=== PATIENT | male | born 1965 | race Caucasian/White ===

== ENCOUNTER 2019-01-20 19:21 | Emergency (ER) | payer OTHER ==
[2019-01-20 19:29] VITALS: TEMP 97.6
--- NOTE | 2019-01-20 19:32 | ED ---
Psych HPI - General Source: patient, police, RN notes reviewed, old records reviewed Mode of arrival: ambulatory - History of Present Illness MD Complaint: suicidal ideation, feels depressed -: week(s) Associated Psychiatric Symptoms: depression, suicidal ideation, racing thoughts History of same: Yes Quality: constant Improves With: none Worsens With: none Context: recent alcohol abuse Associated Symptoms: denies other symptoms Treatments Prior to Arrival: placed on mental health hold If Self Harm: admits thoughts of self harm <Jose Manuel Bowser - Last Filed: 01/20/19 21:04> <Ravinder Barnes - Last Filed: 01/20/19 23:28> - General Chief Complaint: Psychiatric Symptoms Stated Complaint: Mental Health Time Seen by Provider: 01/20/19 19:32 - History of Present Illness Initial Comments: This is a 53-year-old male the ER for psychiatric evaluation of severe depression he did make a statement is brought in by PD for petition evaluation of suicidal thoughts and attempt. 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 Patient does give history of same today. He admits increased stress to these taxes and patient deny intramural [employer] today did drink over the weekend (Jose Manuel Bowser) - Related Data Allergies Allergy/AdvReac Type Severity Reaction Status Date / Time No Known Allergies Allergy Verified 01/20/19 22:21 Review of Systems ROS Other: All systems not noted in ROS Statement are negative. <Jose Manuel Bowser - Last Filed: 01/20/19 21:04> ROS Other: All systems not noted in ROS Statement are negative. <Ravinder Barnes - Last Filed: 01/20/19 23:28> ROS Statement: Those systems with pertinent positive or pertinent negative responses have been documented in the HPI. Past Medical History Past Medical History: No Reported History History of Any Multi-Drug Resistant Organisms: None Reported Past Surgical History: No Surgical Hx Reported Past Psychological History: No Psychological Hx Reported Smoking Status: Never smoker Past Alcohol Use History: None Reported Past Drug Use History: None Reported <Jose Manuel Bowser - Last Filed: 01/20/19 21:04> General Exam Limitations: no limitations General appearance: alert, in no apparent distress Head exam: Present: atraumatic, normocephalic, normal inspection Eye exam: Present: normal appearance, PERRL, EOMI. Absent: scleral icterus, conjunctival injection, periorbital swelling ENT exam: Present: normal exam, mucous membranes moist Neck exam: Present: normal inspection. Absent: tenderness, meningismus, lymphadenopathy Respiratory exam: Present: normal lung sounds bilaterally. Absent: respiratory distress, wheezes, rales, rhonchi, stridor Cardiovascular Exam: Present: regular rate, normal rhythm, normal heart sounds. Absent: systolic murmur, diastolic murmur, rubs, gallop, clicks GI/Abdominal exam: Present: soft, normal bowel sounds. Absent: distended, tenderness, guarding, rebound, rigid Extremities exam: Present: normal inspection, full ROM, normal capillary refill. Absent: tenderness, pedal edema, joint swelling, calf tenderness Back exam: Present: normal inspection Neurological exam: Present: alert, oriented X3, CN II-XII intact Psychiatric exam: Present: normal affect, normal mood Skin exam: Present: warm, dry, intact, normal color. Absent: rash <Jose Manuel Bowser - Last Filed: 01/20/19 21:04> Course <Jose Manuel Bowser - Last Filed: 01/20/19 21:04> Vital Signs 01/20/19 19:24 Temperature 97.6 F Pulse Rate 59 L Respiratory 16 Rate Blood Pressure 168/106 O2 Sat by Pulse 94 L Oximetry - Reevaluation(s) Reevaluation #1: 01/20/19 21:06 Medically clear for psychiatric evaluation (Jose Manuel Bowser) Medical Decision Making <Ravinder Barnes - Last Filed: 01/20/19 23:28> - Medical Decision Making 53-year-old male presents for psychiatric evaluation and suicidal comments. Patient is not suicidal at the time my evaluation. I did evaluate the patient after EPS and sign out from previous physician. He has signed a safety plan. He is not suicidal or homicidal. He has good outpatient follow-up. He is given resources in the emergency department and can be discharged at this time. (Ravinder Barnes) - Lab Data Lab Results 01/20/19 Range/Units 20:00 Urine Opiates Screen Not Detected (NotDetected) Ur Oxycodone Screen Not Detected (NotDetected) Urine Methadone Screen Not Detected (NotDetected) Ur Propoxyphene Screen Not Detected (NotDetected) Ur Barbiturates Screen Not Detected (NotDetected) U Tricyclic Antidepress Not Detected (NotDetected) Ur Phencyclidine Scrn Not Detected (NotDetected) Ur Amphetamines Screen Not Detected (NotDetected) U Methamphetamines Scrn Not Detected (NotDetected) U Benzodiazepines Scrn Detected H (NotDetected) Urine Cocaine Screen Not Detected (NotDetected) U Marijuana (THC) Screen Detected H (NotDetected) Disposition <Jose Manuel Bowser - Last Filed: 01/20/19 21:04> Is patient prescribed a controlled substance at d/c from ED?: No Time of Disposition: 23:27 <Ravinder Barnes - Last Filed: 01/20/19 23:28> Clinical Impression: Depression, Acute anxiety Disposition: HOME SELF-CARE Condition: Good Instructions (If sedation given, give patient instructions): Anxiety (ED) Additional Instructions: please follow up with community mental health. Referrals: Nonstaff,Physician [Primary Care Provider] - 1-2 days Wally Meraz [STAFF PHYSICIAN] - 1-2 days
[2019-01-20 20:16] LABS: Amphetamine Screen,Urine Not Detected (NotDetected); Barbiturate Screen,Urine Not Detected (NotDetected); Benzodiazepines Screen,Urine Detected (NotDetected); Cocaine Screen,Urine Not Detected (NotDetected); Methadone Screen, Urine Not Detected (NotDetected); Opiate Screen,Urine Not Detected (NotDetected); Phencyclidine Screen,Urine Not Detected (NotDetected); Tricyclic Antidepressant,Urine Not Detected (NotDetected); Urn Cannabinoid Scrn Detected (NotDetected)
[2019-01-20 20:17] LABS: Oxycodone Screen, Urine Not Detected (NotDetected)
[2019-01-20] MEDS ORDERED: ACETAMINOPHEN TAB 325 MG TAB PO STA (20:37)
[2019-01-20 23:38] VITALS: BP 140/76; PULSE 88; RESP 18
== END 2019-01-20 23:37 | disposition home or self-care (01) ==
LOC: EC 19:21
DX: F32.9 Major depressive disorder, single episode, unspecified (principal); F41.9 Anxiety disorder, unspecified
CPT/HCPCS: 80306; 82075; 99285